=== PATIENT | female | born 1965 | race Caucasian/White ===

== ENCOUNTER → 2017-09-05 | Outpatient (CLI) | payer OTHER | LOC: FIMAGING 10:51 | PROVIDERS: ATTEND Obstetrics & Gynecology Gynecology | DX: Z12.31 Encounter for screening mammogram for malignant neoplasm of breast (principal) | CPT/HCPCS: G0202 ==

== ENCOUNTER 2017-11-13 10:05 | Observation (INO) | payer OTHER ==
[2017-11-13] MEDS ORDERED: DILTIAZEM 125 MG in D5W 125 ML IV ONE (10:21)
--- NOTE | 2017-11-13 10:22 | CPEKG ---
Heart Rate: 156 RR Interval: 385 P-R Interval: 77 QRSD Interval: 72 QT Interval: 300 QTC Interval: 483 P [place]: 0 QRS [place]: 35 T Wave [place]: 44 EKG Severity - ABNORMAL ECG - EKG Impression: SINUS TACHYCARDIA EKG Impression: RONNELL, CONSIDER BIATRIAL ABNORMALITIES EKG Impression: PROBABLE POSTERIOR INFARCT Electronically Signed By: Armando Mendoza 13-Nov-2017 10:54:01
[2017-11-13] MEDS ORDERED: DILTIAZEM 25 MG/5 ML VIAL IVP ONE ×2 (10:29→10:35)
[2017-11-13 10:30] LABS: PLATELET COUNT 329 10^3/uL (150-400)
--- NOTE | 2017-11-13 10:32 | EDPHY ---
H & P Stated Complaint: Pt states she is afib since Monday Time Seen by Provider: 11/13/17 10:17 HPI/ROS: CHIEF COMPLAINT: Palpitations HISTORY OF PRESENT ILLNESS: The patient presents to the ED with complaints of palpitations that began on Monday. They have been constant in unimproved after taking her 's metoprolol. She had been seen at [facility] and was referred to the ED for further evaluation. She denies any chest pain, shortness of breath or other complaints. The patient has taken aspirin for the past 3 days. She is not anticoagulated. She denies additional acute complaints. REVIEW OF SYSTEMS: A comprehensive 10 point review of systems is otherwise negative aside from elements mentioned in the history of present illness. Source: Patient, Family - Personal History LMP (Females 10-55): Post Menopausal Current Tetanus Diphtheria and Acellular Pertussis (TDAP): Yes - Medical/Surgical History Hx Asthma: No Hx Chronic Respiratory Disease: No Hx Diabetes: No Hx Cardiac Disease: Yes Hx Renal Disease: No Hx Cirrhosis: No Hx Alcoholism: No Hx HIV/AIDS: No Hx Splenectomy or Spleen Trauma: No Other PMH: appy 2013, MRSA, afib - Social History Smoking Status: Former smoker - Physical Exam Exam: General Appearance: Alert, no distress Eyes: Pupils equal and round no pallor or injection ENT, Mouth: Mucous membranes moist Respiratory: There are no retractions, lungs are clear to auscultation Cardiovascular: Regular, tachycardic Gastrointestinal: Abdomen is soft and nontender, no masses, bowel sounds normal Neurological: A&O, normal motor function, normal sensory exam, normal cranial nerves Skin: Warm and dry, no rashes Musculoskeletal: Neck is supple nontender Extremities: symmetrical, full range of motion Constitutional: Initial Vital Signs Temperature (C) 36.6 C 11/13/17 10:08 Heart Rate 148 H 11/13/17 10:08 Respiratory Rate 18 11/13/17 10:08 Blood Pressure 105/85 H 11/13/17 10:08 O2 Sat (%) 98 11/13/17 10:08 O2 Delivery Mode Room Air Allergies/Adverse Reactions: Penicillins Allergy (Intermediate, Verified 11/13/17 10:12) Hives Home Medications: Medication Instructions Recorded Metoprolol Tartrate [Lopressor 50 50 mg PO 11/13/17 mg (*)] Medical Decision Making - Diagnostics EKG Interpretation: EKG: Complete interpretation has been separately recorded in the [facility] archive. Summary impression: Atrial flutter ED Course/Re-evaluation: The patient presents to the ED with atrial flutter with 2-1 conduction. The patient initially was treated with a 20 mg diltiazem bolus which converted her into an atrial fibrillation/flutter with 4-1 conduction. The patient then returned back to a flutter pattern. I discussed the case with Dr. Yang Matthews with Cardiology who recommends admission to the hospital for a diltiazem drip, echocardiogram and heparinization. They will consult on the patient and consider BRIGHT cardioversion tomorrow. Consultation was made with the hospitalist service. The patient will be admitted to the PCU. I re-evaluated the patient at 1:30 p.m.. She is in no acute distress. The patient does have low blood pressure which she reports is a fairly typical finding for her. She has no altered mentation or complaints of chest pain. She is comfortable being admitted to the hospital. A heparin drip has been ordered. The patient will be admitted by Yair Espitia. Differential Diagnosis: Differential diagnosis considered includes atrial fibrillation, SVT, ventricular tachycardia, myocardial ischemia - Data Points Laboratory Results: Laboratory Results 11/13/17 10:20 11/13/17 10:20 11/13/17 11/13/17 10:20 10:20 WBC 8.50 10^3/uL 10^3/uL (3.80-9.50) RBC 5.49 10^6/uL H 10^6/uL (4.18-5.33) Hgb 15.5 g/dL g/dL (12.6-16.3) Hct 46.5 % % (38.0-47.0) MCV 84.7 fL fL (81.5-99.8) MCH 28.2 pg pg (27.9-34.1) MCHC 33.3 g/dL g/dL (32.4-36.7) RDW 12.8 % % (11.5-15.2) Plt Count 329 10^3/uL 10^3/uL (150-400) MPV 10.1 fL fL (8.7-11.7) Neut % (Auto) 57.1 % % (39.3-74.2) Lymph % (Auto) 35.8 % % (15.0-45.0) [place] % (Auto) 5.3 % % (4.5-13.0) Eos % (Auto) 1.2 % % (0.6-7.6) Baso % (Auto) 0.2 % L % (0.3-1.7) Nucleat RBC Rel Count 0.0 % % (0.0-0.2) Absolute Neuts (auto) 4.86 10^3/uL 10^3/uL (1.70-6.50) Absolute Lymphs (auto) 3.04 10^3/uL H 10^3/uL (1.00-3.00) Absolute Monos (auto) 0.45 10^3/uL 10^3/uL (0.30-0.80) Absolute Eos (auto) 0.10 10^3/uL 10^3/uL (0.03-0.40) Absolute Basos (auto) 0.02 10^3/uL 10^3/uL (0.02-0.10) Absolute Nucleated RBC 0.00 10^3/uL 10^3/uL (0-0.01) Immature Gran % 0.4 % % (0.0-1.1) Immature Gran # 0.03 10^3/uL 10^3/uL (0.00-0.10) Sodium 144 mEq/L mEq/L (135-145) Potassium 4.7 mEq/L mEq/L (3.5-5.2) Chloride 105 mEq/L mEq/L (97-110) Carbon Dioxide 28 mEq/l mEq/l (22-31) Anion Gap 11 mEq/L mEq/L (8-16) BUN 16 mg/dL mg/dL (7-23) Creatinine 0.8 mg/dL mg/dL (0.6-1.0) Estimated GFR > 60 Glucose 79 mg/dL mg/dL (70-100) Calcium 10.4 mg/dL mg/dL (8.5-10.4) Troponin I 0.016 ng/mL ng/mL (0.000-0.034) Medications Given: Discontinued Medications Diltiazem HCl (Cardizem 25 Mg/5 Ml Vial) 20 mg IVP EDNOW ONE Stop: 11/13/17 10:36 Last Admin: 11/13/17 10:38 Dose: 20 mg Diltiazem HCl (Cardizem Immediate Release) 30 mg PO EDNOW ONE Stop: 11/13/17 12:19 Last Admin: 11/13/17 13:20 Dose: 30 mg Diltiazem HCl 125 mg/ Dextrose 125 mls @ 0 mls/hr IV EDNOW ONE; As Directed PRN Reason: Protocol Stop: 11/13/17 10:22 Last Admin: 11/13/17 11:54 Dose: 125 mls Departure - Departure Disposition: [facility] Inpatient Acute Clinical Impression: Atrial flutter Condition: Fair Referrals: Tristan Gutierrez MD [Primary Care Provider] - As per Instructions
[2017-11-13] MEDS ORDERED: DILTIAZEM 30 MG TAB PO ONE (12:18)
[2017-11-13] MEDS ORDERED: HEPARIN 10,000 UNIT/10 ML MDV (1,000 UNIT/ML) IVP ONE (13:24)
[2017-11-13] MEDS ORDERED: HEPARIN/DEXTROSE 500 ML IV ONE (13:24)
[2017-11-13] MEDS ORDERED: HEPARIN 10,000 UNIT/10 ML MDV (1,000 UNIT/ML) IVP PRN (15:54)
[2017-11-13] MEDS ORDERED: DILTIAZEM 125 MG in D5W 125 ML IV SCH (16:00)
[2017-11-13] MEDS ORDERED: HEPARIN/DEXTROSE 500 ML IV SCH (16:00)
[2017-11-13] MEDS ORDERED: ACETAMINOPHEN 325 MG TAB PO PRN (16:05)
[2017-11-13] MEDS ORDERED: ONDANSETRON 4 MG/2 ML VIAL IVP PRN (16:05)
--- NOTE | 2017-11-13 16:31 | GHP ---
[f rep st] HISTORY AND PHYSICAL DATE OF ADMISSION: 11/13/2017 CHIEF COMPLAINT: Palpitations. HISTORY: The patient is a 52-year-old female with a history of atrial flutter. She has had it once before and was admitted to the hospital and spontaneously converted and discharged home the next day. She has had no recurrence since that time. She now re-presents to the hospital with palpitations f or the last 4 days. The palpitations have been constant since Monday with a persistent heart rate gr eater than 150. She took her 's metoprolol without any relief. She denies any chest pain, sh ortness of breath or dizziness. PAST MEDICAL HISTORY: Atrial fibrillation x1 previous episode. PAST SURGICAL HISTORY: Appendectomy. MEDICATIONS: Please see computer record for full detailed list. ALLERGIES: Penicillin. SOCIAL HISTORY: No smoking, 1-2 alcoholic beverages per day. She lives with her . REVIEW OF SYSTEMS: Complete review of systems obtained. Review of systems negative on constitutiona l, HEENT, GI, pulmonary, cardiovascular, , hematology, skin, musculoskeletal, endocrine and psych. Pertinent positives and negatives as in HPI. FAMILY HISTORY: Reviewed and noncontributory to presenting complaint. PHYSICAL EXAMINATION: GENERAL: Well-developed, well-nourished female in no acute distress. VITAL S IGNS: Temperature is 36.9, pulse 156, blood pressure 110/82, saturating 95% room air. EYES: Normal conjunctivae. Pupils react to light. ENT: Normal ears and nose. Hearing intact. Normal teeth. Oropharynx moist. NECK: Trachea midline. No thyromegaly. CHEST: Normal respiratory effort. Lung s clear to auscultation bilaterally. CARDIOVASCULAR: Regular rate and rhythm. No murmur. No extre mity edema. ABDOMEN: Soft, nontender. No hepatosplenomegaly. SKIN: Warm, dry, intact. No rash. MUSCULOSKELETAL: No cyanosis or clubbing. Strength 5/5 upper and lower extremities. NEUROLOGIC: Cranial nerves intact. Normal sensation to light touch. PSYCHIATRIC: Alert and oriented x3. Catherine l affect. Normal judgment. Normal memory. LABORATORY DATA: White count 8.5, hematocrit 46.5, platelets 329. Sodium 144, potassium 4.7, chlori de 105, bicarb 28, BUN 16, creatinine 0.8, glucose 79. Troponins negative. EKG viewed by me. My personal interpretation is atrial flutter with a heart rate greater than 150. Medical records reviewed. She was hospitalized here once before for similar atrial flutter, for whic h she spontaneously converted and was discharged home the next day. ASSESSMENT AND PLAN: Atrial flutter. Intravenous diltiazem started in the emergency room, which I w ill continue. Cardiology will see her in consultation. If she does not convert, she will likely nee d cardioversion in the morning. I will make her nothing by mouth after midnight. She has an intrave nous heparin drip for stroke prevention and will likely need Eliquis upon discharge. We will check a n echocardiogram and a TSH. COR STATUS: Full. ADMISSION STATUS: Will admit to observation and anticipate discharge home tomorrow if she is in norm al sinus rhythm. DEEP VENOUS THROMBOSIS PROPHYLAXIS: She is low risk. /[id number]/MODL
[2017-11-13] MEDS ORDERED: NS 1,000 ML IV ONE (17:35)
[2017-11-13 18:17] LABS: PLATELET COUNT 320 10^3/uL (150-400)
[2017-11-13 18:26] LABS: INR 1.07 (0.83-1.16); PROTIME(PATIENT) 14.1 SEC (12.0-15.0)
[2017-11-14 03:35] VITALS: PULSE 85
[2017-11-14] MEDS ORDERED: ATROPINE SULFATE 1 MG/10 ML SYR IVP ONE (06:00)
[2017-11-14 08:57] LABS: PROTIME(PATIENT) 13.4 SEC (12.0-15.0)
[2017-11-14 09:03] VITALS: BP 108/69; RESP 18; TEMP 98.2; O2SAT 96
--- NOTE | 2017-11-14 09:08 | CPEKG ---
Heart Rate: 77 RR Interval: 779 P-R Interval: 144 QRSD Interval: 76 QT Interval: 404 QTC Interval: 458 P [place]: 53 QRS [place]: 32 T Wave [place]: 12 EKG Severity - NORMAL ECG - EKG Impression: SINUS RHYTHM EKG Impression: LEFT ATRIAL ENLARGEMENT Electronically Signed By: Yang Smith 15-Nov-2017 11:48:55
[2017-11-14] MEDS ORDERED: APIXABAN 5 MG TAB PO SCH (09:30)
--- NOTE | 2017-11-14 11:53 | GDS ---
[f rep st] DISCHARGE SUMMARY DISCHARGE DIAGNOSIS: Rapid atrial fibrillation. HISTORY: The patient is a 52-year-old female with 1 previous episode of a flutter now representing w ith recurrence. She presented with a heart rate of 150 in A flutter which had been sustained for the last 4 days. She was put on an IV diltiazem drip and spontaneously converted herself back to normal sinus rhythm. She was started on anticoagulation and will discharge on Eliquis. I spoke with [facility] ology regarding rate management and they recommended diltiazem CD 120 mg p.o. daily which she can tomi e as needed as she is symptomatic with the atrial fibrillation and it does happen infrequently. Her baseline blood pressure is on the low side, which may limit rate control medications. She will follo w up closely with Dr. Hairston. Echocardiogram is ordered for this hospitalization; however, still p ending at this time. She can follow up that result with Dr. Hairston. TSH was normal and troponins were negative. DISCHARGE MEDICATIONS: Please see computerized record for full detailed list. New medications: 1. Diltiazem CD 120 mg p.o. daily as needed for heart rate sustained greater than 120. 2. Eliquis 5 mg p.o. b.i.d. ADDITIONAL DISCHARGE INSTRUCTIONS: 1. Please follow up result of echocardiogram with Dr. Hairston. 2. Followup [facility] 1 week. Patient was seen and examined by me on the date of discharge. /[id number]/MODL
--- NOTE | 2017-11-14 14:07 | PDCARPN ---
Cardiology Progress Note Chief Complaint: Atrial Flutter Assessment/Plan: Assessment: Atrial Flutter with rate 150 's yesterday. She did respond to IV Diltiazem, and converted during the night to RSR. She feels well today. She understands she needs to start Eliquis, remain on Plavix and ASA 81 mg QD. She will start low dose daily Cardizem to assist in keeping her in RSR. She has a cardiology appointment next week on Monday, and will get an EKG at that time. She is stable for discharge. Plan:Cardizem QD. Follow up with Cardiology in one week. 11/14/17 14:07 Objective: Vital Signs (8 Hrs) Temp Pulse Resp BP Pulse Ox 11/14/17 08:00 36.8 C 85 18 108/69 96 Intake/Output (24 Hrs) 11/13/17 11/14/17 11/15/17 05:59 05:59 05:59 Intake Total 1240 Balance 1240 Intake: Oral (ml) 1240 Other: Weight 100.6 kg Number of Voids 1 Toilet 2 Result Diagrams: 11/13/17 18:10 11/14/17 08:27 Cardiac Labs: Cardiac Lab Results (72 Hrs) 11/14/17 11/14/17 11/13/17 08:27 01:55 18:10 Troponin I 0.015 0.018 0.017 - Physical Exam Constitutional: no apparent distress Cardiovascular: regular rate and rhythm, no murmurs, no rubs Respiratory: clear to auscultate bilat, no crackles, no wheezes Skin: warm Neurologic: AAOx3 Psychiatric: cooperative, interactive ICD10 Worksheet Patient Problems: Problems Problem Status Onset Atrial flutter Acute
--- NOTE | 2017-11-14 15:19 | GCON ---
[f rep st] CONSULTATION DATE OF CONSULTATION: 11/13/2017 REASON FOR CONSULTATION: We were asked to consult by the hospitalist regarding atrial flutter. HOSPITAL COURSE: The patient presented to the emergency room with a history of atrial flutter. She was complaining of palpitations. By EKG, she was in atrial flutter. She reported having 1 previous episode of atrial flutter and went to the hospital; however, she spontaneously converted and was discharged home the following day. She has had no recurrence since that time until her presentation in atrial flutter at this visit. She first noted the palpitations on Monday and continued to experience the palpitations during the weekend. She presented to the emergency room for further evaluation and treatment. She did try one of her 's metoprolol over the weekend after speaking to the skin care technician [employer] consultant; however, she had no change of rhythm. At time of admission, she has no other symptoms other than the palpitations. She has not experienced chest pain, shortness of breath, or dizziness. PAST MEDICAL HISTORY: Atrial fibrillation. PAST SURGICAL HISTORY: Appendectomy. ALLERGIES: Penicillin. MEDICATIONS: Ibuprofen 200 mg daily as needed. SOCIAL HISTORY: She is . She denies smoking. She drinks alcohol socially. REVIEW OF SYSTEMS: GENERAL HEALTH: No distress. EYES: She has no vision problems. ENT: No hearing difficulty. Normal nose, ears and throat. NECK: No lymph node enlargement. No headaches. CHEST: Normal lung efforts. CARDIOVASCULAR: No chest pain, shortness of breath. Positive for palpitations. GASTROINTESTINAL: No problems with indigestion or nausea. GENITOURINARY: No voiding problems. MUSCULOSKELETAL: No weakness, pain. NEUROLOGIC: No balance problems or problems with gait/walking. No memory problems. ENDOCRINE: Denies dry skin and hair loss. PSYCHIATRIC: She is cooperative. No depression. PHYSICAL EXAMINATION: GENERAL: She is well-developed and in no acute distress. VITAL SIGNS: Blood pressure 110/82, heart rate 156 (telemetry shows atrial flutter), oxygen saturation 95%. EYES: Normal with appropriate pupil reaction to light. ENT: Hearing intact. NECK: No thyromegaly. CHEST: Lungs are clear to auscultation. No wheezes, rales, or rhonchi. CARDIOVASCULAR: Heart rate is irregular. No murmurs, rubs, or gallops. No extremity edema. ABDOMEN : Soft and nontender. Bowel sounds in all 4 quadrants. SKIN: Warm and dry with no rash. MUSCULOSKELETAL: No cyanosis. NEUROLOGIC: Normal sensation to touch. Cranial nerves are intact. PSYCHIATRIC: Alert and oriented. Normal memory and affect. DIAGNOSTICS: EKG shows atrial flutter with a rate of 150-160. PLAN: Continue with diltiazem drip. Should she not convert by morning, will plan to do a BRIGHT DC cardioversion. This has been discussed with her, and she is in agreement with this plan. /[id number]/MODL MTDD
== END 2017-11-14 11:48 | disposition home or self-care (01) ==
LOC: F2W 14:59
PROVIDERS: ADMIT Internal Medicine; ATTEND Internal Medicine
DX: I48.92 Unspecified atrial flutter (principal); I48.91 Unspecified atrial fibrillation; Z79.2 Long term (current) use of antibiotics; Z86.14 Personal history of Methicillin resistant Staphylococcus aureus infection; Z78.0 Asymptomatic menopausal state; Z88.0 Allergy status to penicillin
CPT/HCPCS: 93005; G0378; 85520-90; 96365; 96366; J1644

== ENCOUNTER → 2018-09-13 | Outpatient (CLI) | payer OTHER | LOC: FIMAGING 11:21 | PROVIDERS: ATTEND Obstetrics & Gynecology Gynecology | DX: Z12.31 Encounter for screening mammogram for malignant neoplasm of breast (principal) ==

== ENCOUNTER 2018-10-29 21:29 | Emergency (ER) | payer OTHER ==
[2018-10-29] MEDS ORDERED: DILTIAZEM 25 MG/5 ML VIAL IVP ONE ×3 (21:46→22:15)
--- NOTE | 2018-10-29 21:46 | EDPHY ---
HPI/HX/ROS/PE/MDM Narrative: CHIEF COMPLAINT: High heart rate. HPI: This patient is a pleasant 53 year old female with history of paroxysmal atrial fibrillation/atrial flutter. She has been evaluated here in the past for this and generally converts with Cardizem. Dr. Clark, forensic engineer, had offered ablation in the past, but the patient preferred to try medical management. She continues to follow up with cardiology and is scheduled for a routine follow-up visit in two days with Dr. Hairston. Tonight around 20:00, she was walking down the stairs and had sudden onset of rapid, irregular heart rate. She took her PO Cardizem as prescribed around 20:30 with no relief. She cannot identify any precipitating factors - she did have two small glasses of white wine this evening, but this does not usually provoke symptoms. She states she has been admitted several times in the past for this and generally converts with diltiazem drip as soon as she gets to the floor. Generally, her symptoms involve a sensation of more regular tachycardia, but tonight is different as her heart rate is higher than usual and feels very irregular. She denies any chest pain, shortness of breath, lightheadedness or other associated symptoms. REVIEW OF SYSTEMS: A comprehensive 10 system review of systems is otherwise negative aside from elements mentioned in the history of present illness and medical decision making. PMH: Paroxysmal atrial fibrillation. SOCIAL HISTORY: Employed as a electronics warfare technician. . and daughter at bedside. Does not abuse tobacco, drugs, or alcohol. PHYSICAL EXAM: General:Patient is alert, in no acute distress. ENT:Eyes are normal to inspection. ENT inspection normal. Neck: Normal inspection. Full range of motion. Respiratory:No respiratory distress. Breath sounds normal bilaterally. Cardiovascular: Regular rate and rhythm. Strong peripheral pulses. Normal cap refill. Abdomen:The abdomen is nontender to palpation. There are no peritoneal signs. There are normal bowel sounds. Back: Normal to inspection. No tenderness to palpation. Skin: Normal color. No rash. Warm and dry. Extremities: Normal appearance. Full range of motion. Neuro: Oriented x3. Normal motor function. Normal sensory function. (Tad Rajan) ED Course: 53 y/o female with history of paroxysmal afib presents with atrial fibrillation onset around 20:00 this evening. EKG at bedside on arrival confirms afib with rapid rate. Discussed treatment options including IV diltiazem vs electrical cardioversion. Patient prefers medical management and to avoid admission if possible. Plan to administer 20mg IV diltiazem followed by diltiazem drip. EKG was ordered and interpreted by myself. Please see [email or web address] for official reading. 22:15 Patients rate initially decreased to 130 after diltiazem administration, but is now increasing again. Diltiazem drip has not yet arrived from pharmacy. Plan to administer an additional 10mg IV diltiazem for rate control. 22:20 Care of this patient transferred to Dr. Caba at shift change for continued management of the patient's atrial fibrillation. She continues to prefer discharge home if possible. (Tad Rajan) 0117: I did re-evaluate the patient she is resting comfortably. Heart rate is currently 106. She is back in sinus rhythm EKG shows sinus rhythm rate of 106, time of EKG 1:06 a.m.. There is no signs of acute ischemia with this EKG. The patient fact tells me that she is not on any blood thinners. Will discuss case with Cardiology. 0134: Discussed the case in detail with the patient. She still wants to go home I did offer her hospital admission. I also spoke Cardiology Dr. Camara, discussed case in detail. The patient has a previous history of a flutter and was given a prescription for Eliquis. She does have a month supply at home. Dr. Camara like her to start her Eliquis at home. The patient is in sinus rhythm, her most recent EKG time 9:06 p.m. Sinus tach 106 there are P waves present. No acute ischemia. Given the patient is back in sinus rhythm she wants to go home. I do encourage of closely follow up with Cardiology Dr. Cloeman. She should take Eliquis InCase she goes in and out of AFib. She understands this. Return precautions discussed with the patient she understands return emergency room she develops fast heart rate, chest pain, shortness of breath, not doing well. Including syncope. She ambulated well throughout the emergency room at 1:35 a.m. Without any chest pain or shortness of breath without any signs of AFib. She would like to go home. Again offered hospital admission but she is decline. (Atif Caba) - Data Points Laboratory Results: Laboratory Results 10/29/18 21:45 10/29/18 21:45 10/29/18 10/29/18 21:45 21:45 WBC 10.25 10^3/uL H 10^3/uL (3.80-9.50) RBC 5.34 10^6/uL H 10^6/uL (4.18-5.33) Hgb 15.2 g/dL g/dL (12.6-16.3) Hct 45.0 % % (38.0-47.0) MCV 84.3 fL fL (81.5-99.8) MCH 28.5 pg pg (27.9-34.1) MCHC 33.8 g/dL g/dL (32.4-36.7) RDW 12.7 % % (11.5-15.2) Plt Count 311 10^3/uL 10^3/uL (150-400) MPV 9.7 fL fL (8.7-11.7) Neut % (Auto) 57.7 % % (39.3-74.2) Lymph % (Auto) 33.2 % % (15.0-45.0) [place] % (Auto) 7.1 % % (4.5-13.0) Eos % (Auto) 1.4 % % (0.6-7.6) Baso % (Auto) 0.2 % L % (0.3-1.7) Nucleat RBC Rel Count 0.0 % % (0.0-0.2) Absolute Neuts (auto) 5.92 10^3/uL 10^3/uL (1.70-6.50) Absolute Lymphs (auto) 3.40 10^3/uL H 10^3/uL (1.00-3.00) Absolute Monos (auto) 0.73 10^3/uL 10^3/uL (0.30-0.80) Absolute Eos (auto) 0.14 10^3/uL 10^3/uL (0.03-0.40) Absolute Basos (auto) 0.02 10^3/uL 10^3/uL (0.02-0.10) Absolute Nucleated RBC 0.00 10^3/uL 10^3/uL (0-0.01) Immature Gran % 0.4 % % (0.0-1.1) Immature Gran # 0.04 10^3/uL 10^3/uL (0.00-0.10) Sodium 137 mEq/L mEq/L (135-145) Potassium 3.9 mEq/L mEq/L (3.5-5.2) Chloride 104 mEq/L mEq/L (97-110) Carbon Dioxide 26 mEq/l mEq/l (22-31) Anion Gap 7 mEq/L mEq/L (6-14) BUN 15 mg/dL mg/dL (7-23) Creatinine 0.8 mg/dL mg/dL (0.6-1.0) Estimated GFR > 60 Glucose 105 mg/dL H mg/dL (70-100) Calcium 9.8 mg/dL mg/dL (8.5-10.4) TSH 5.980 uIU/mL H uIU/mL (0.465-4.680) Medications Given: Discontinued Medications Diltiazem HCl (Cardizem 25 Mg/5 Ml Vial) 20 mg IVP EDNOW ONE Stop: 10/29/18 21:48 Last Admin: 10/29/18 21:48 Dose: 20 mg Diltiazem HCl (Cardizem 25 Mg/5 Ml Vial) 10 mg IVP EDNOW ONE Stop: 10/29/18 22:16 Last Admin: 10/29/18 22:19 Dose: 10 mg Sodium Chloride (Ns) 500 mls @ 1,000 mls/hr IV EDNOW ONE PRN Reason: Protocol Stop: 10/29/18 22:24 Last Admin: 10/29/18 22:00 Dose: 500 mls Diltiazem/Dextrose (Diltiazem 125mg/125ml (Premix)) 125 mls @ 0 mls/hr IV EDNOW ONE; Titrate PRN Reason: Protocol Stop: 10/29/18 22:31 Last Admin: 10/29/18 22:26 Dose: 125 mls Sodium Chloride (Ns) 500 mls @ 1,000 mls/hr IV EDNOW ONE PRN Reason: Protocol Stop: 10/30/18 00:16 Last Admin: 10/29/18 23:48 Dose: 500 mls General Time Seen by Provider: 10/29/18 21:38 Initial Vital Signs: Initial Vital Signs Heart Rate 188 H 10/29/18 21:42 Respiratory Rate 20 10/29/18 21:42 Blood Pressure 130/103 H 10/29/18 21:42 O2 Sat (%) 93 10/29/18 21:42 O2 Delivery Mode Room Air Allergies/Adverse Reactions: Penicillins Allergy (Intermediate, Verified 10/29/18 21:44) Hives Home Medications: Medication Instructions Recorded Diltiazem HCl [Cardizem Cd] 120 mg PO DAILY PRN #20 cap.er.24h 11/14/17 Departure - Departure Disposition: [facility] Inpatient Acute Clinical Impression: Thyroid disease, A-fib Condition: Good Instructions: A-fib (Atrial Fibrillation) (ED), Hypothyroidism (ED) Additional Instructions: 1. Return to the emergency room if there is worsening symptoms 2. Follow up with your forensic engineer 3. Take your eliquis. Referrals: Tristan Gutierrez MD [Primary Care Provider] - As per Instructions Anthony Hairston MD [Medical Doctor] - As per Instructions Report Scribed for: Tad Rajan Report Scribed by: Mickie Wetzel Date of Report: 10/29/18 Time of Report: 22:26 Physician Review and Approval Statement: Portions of this note were transcribed by an ED scribe. I personally performed the history, physical exam, and medical decision making; and confirm the accuracy of the information in the transcribed note.
[2018-10-29] MEDS ORDERED: NS 500 ML IV ONE ×2 (21:55→23:47)
[2018-10-29] MEDS ORDERED: DILTIAZEM 125 MG in D5W 125 ML IV ONE (22:00)
[2018-10-29 22:02] LABS: PLATELET COUNT 311 10^3/uL (150-400)
[2018-10-29] MEDS ORDERED: DILTIAZEM HCL/D5W 125 ML IV ONE (22:30)
[2018-10-30] MEDS ORDERED: APIXABAN 5 MG TAB PO ONE (01:33)
[2018-10-30] MEDS ORDERED: DILTIAZEM 60 MG TAB PO ONE (01:44)
[2018-10-30 01:56] VITALS: BP 115/67
--- NOTE | 2018-10-30 08:16 | CPEKG ---
Test Reason : OPEN Blood Pressure : / mmHG Vent. Rate : 106 BPM Atrial Rate : 106 BPM P-R Int : 134 ms QRS Dur : 081 ms QT Int : 334 ms P-R-T Axes : 047 032 008 degrees QTc Int : 444 ms Sinus tachycardia Low voltage, precordial leads Confirmed by Atif Caba ([id number]) on 10/30/2018 8:16:04 AM Referred By: Atif Caba Confirmed By:Atif Caba
--- NOTE | 2018-10-30 08:16 | CPEKG ---
Test Reason : OPEN Blood Pressure : / mmHG Vent. Rate : 116 BPM Atrial Rate : 116 BPM P-R Int : 133 ms QRS Dur : 083 ms QT Int : 319 ms P-R-T Axes : 053 050 016 degrees QTc Int : 444 ms Sinus tachycardia Low voltage, precordial leads Confirmed by Atif Caba ([id number]) on 10/30/2018 8:16:08 AM Referred By: Atif Caba Confirmed By:Atif Caba
== END 2018-10-30 02:00 | disposition home or self-care (01) ==
DX: I48.91 Unspecified atrial fibrillation (principal); E07.9 Disorder of thyroid, unspecified; E86.9 Volume depletion, unspecified; Z88.0 Allergy status to penicillin
CPT/HCPCS: 96365; 96366